=== PATIENT | female | born 1945 | race Two or more races ===

== ENCOUNTER 2017-04-21 08:06 | Day surgery (SDC) | payer MEDICARE ==
[2017-04-18 12:33] LABS: HEMATOCRIT 37.5 % (34.6-47.8); HEMOGLOBIN 12.5 g/dL (11.7-16.4)
[2017-04-18 12:38] LABS: BLOOD UREA NITROGEN 19 mg/dL (7-18)
[2017-04-18 13:00] LABS: PATH.CAST-FLAG NOT PRESENT; SPERM-FLAG NOT PRESENT; SRC-FLAG NOT PRESENT; XTAL-FLAG NOT PRESENT; YLC-FLAG NOT PRESENT
[~2017-04-21] VITALS: Ht 149.9 cm; Wt 56.8 kg
[~2017-04-21 08:06] MED LIST: ASPI-621 PO; BUPIVACAINE/PF 0.5% ONE; CEFAZOLIN 1,000 MG ONE; CEPH-376 PO; DEXAMETHASONE 4 MG/ML, 1ML ONE; EPINEPHRINE 1 MG/ML, 1ML ONE; FENTANYL PF 250 MCG/5ML ONE; GLYCOPYRROLATE 0.2MG/1ML, 5ML ONE; LACT1CAP5 PO; MIDAZOLAM 1 MG/ML, 2ML ONE; MULT-717 PO; NEOSTIGMINE 1 MG/ML, 10ML ONE; ONDANSETRON 2MG/ML, 2ML ONE; PROPOFOL 10 MG/ML, 20ML ONE; RED600TA PO; ROCURONIUM 10 MG/ML ONE; SUCCINYLCHOLINE 20 MG/ML, 10ML ONE; [UNRECOGNIZED DRUG - OTHER]
[2017-04-21] MEDS ORDERED: LACTATED RINGERS 1,000 ML IV SCH (08:38)
[2017-04-21 08:40] VITALS: BP 132/78
[2017-04-21] MEDS ORDERED: BUPIVACAINE/PF 0.5% ONE (09:08)
[2017-04-21] MEDS ORDERED: EPINEPHRINE 1 MG/ML, 1ML ONE (09:08)
[2017-04-21] MEDS ORDERED: LIDOCAINE 4%, 4 ML SYR/CANN TP ONE (09:44)
[2017-04-21] MEDS ORDERED: FENTANYL PF 100 MCG/2ML IV PRN (10:30)
[2017-04-21] MEDS ORDERED: PROMETHAZINE 25 MG/ML, 1ML IV PRN (10:30)
[2017-04-21] MEDS ORDERED: OXYcodone 5 MG/5 ML ORAL.SOL UDC PO PRN (10:30)
[2017-04-21] MEDS ORDERED: MEPERIDINE/PF 25MG/0.5ML IVPush PRN (10:30)
[2017-04-21] MEDS ORDERED: HYDROcodone/APAP 7.5-325MG/15ML UDC PO PRN (10:30)
[2017-04-21] MEDS ORDERED: HYDROmorphone 1 MG/ML, 1ML IV PRN (10:30)
[2017-04-21] MEDS ORDERED: ACETAMINOPHEN 325 MG TABLET PO PRN (10:30)
[2017-04-21] MEDS ORDERED: ONDANSETRON 2MG/ML, 2ML IVPush PRN (10:30)
[2017-04-21] MEDS ORDERED: KETOROLAC 30 MG/1 ML ONE (11:10)
[2017-04-21] MEDS ORDERED: KETOROLAC 30 MG/1 ML IM PRN (11:30)
[2017-04-21] MEDS ORDERED: KETOROLAC 30 MG/1 ML IVPush PRN (11:30)
[2017-04-21] MEDS ORDERED: KETOROLAC 30 MG/1 ML IVPush ONE (12:00)
== END 2017-04-21 14:45 ==
LOC: OUT 08:06
PROVIDERS: ATTEND Orthopaedic Surgery Orthopaedic Surgery of the Spine
DX: M48.56XA Collapsed vertebra, not elsewhere classified, lumbar region, initial encounter for fracture (principal); Z88.5 Allergy status to narcotic agent; Z88.0 Allergy status to penicillin; Z88.8 Allergy status to other drugs, medicaments and biological substances
CPT/HCPCS: 22514; 36415; 71020; 72100; 80048; 81001; 85025; 88307; 88311; 93005; J0171; J0330; J0690; J1100; J1885; J2250; J2405; J2704; J2710; J3010; J3490; J7120; C1713